=== PATIENT | male | born 1960 | race Caucasian/White ===

== ENCOUNTER 2017-06-14 14:16 | Inpatient (IN) | payer BC ==
[~2017-06-14] VITALS: Ht 167.6 cm; Wt 103.7 kg
[~2017-06-14 14:16] MED LIST: ALBUTEROL SULF8.5 GM IH; ANUSOL HC,ANUCO25 MG PR; ANUSOL-HC21 GM PR; PREDNISONE10 MG PO
[2017-06-14 15:04] LABS: HEMATOCRIT 30.2 % (38.0-50.0); MCH 15.6 PG (29.0-34.0); MCHC 26.8 G/DL (30.0-36.0); MCV 58.3 FL (86-99); MEAN PLAT.VOLUME 8.4 uM^3 (9.0-12.4); NRBC (%) 0.5 /100 WBC (0-0); PLATELET COUNT 651 K/uL (156-360); RBC DIS.WIDTH-CV 21.8 % (11.8-14.6); RBC DIS.WIDTH-SD 41.9 % (39-53); RED BLOOD COUNT 5.18 M/uL (4.00-5.50); WHITE BLOOD COUNT 15.3 K/uL (4.1-10.2)
[2017-06-14 15:10] LABS: CHLORIDE 99 mEq/L (99-109); POTASSIUM 4.4 mEq/L (3.7-5.4); SODIUM 133 mEq/L (136-147)
[2017-06-14 15:12] LABS: GLUCOSE 92 mg/dL (70-99)
[2017-06-14 15:13] LABS: ANION GAP 8 MEQ/L (2-14)
[2017-06-14 15:16] LABS: GFR ESTIMATE (CALCULATED) > 59 mL/min/
[2017-06-14 15:17] LABS: UREA NITROGEN (BUN) 10 mg/dL (9-23)
[2017-06-14] MEDS ORDERED: ASPIR 8181 M1 PO (15:20)
[2017-06-14] MEDS ORDERED: PRILOSEC20 MG PO (15:20)
[2017-06-14] MEDS ORDERED: DALIRESP500 MCG PO (15:20)
[2017-06-14] MEDS ORDERED: STIOLTO RESPIMAT4 GM IH (15:21)
[2017-06-14] MEDS ORDERED: ATORVASTATIN CA10 MG PO (15:21)
[2017-06-14] MEDS ORDERED: TRAMADOL HCL50 MG PO (15:22)
[2017-06-14] MEDS ORDERED: DELTASONE20 M1 PO (15:22)
[2017-06-14] MEDS ORDERED: VENTOLIN HFA18 GM PO (15:22)
[2017-06-14 15:28] LABS: ADD MIUA? NO; BILIRUBIN NEGATIVE; BLOOD NEGATIVE; COLOR COLORLESS ((YELLOW)); GLUCOSE (STRIP) NEGATIVE; KETONES NEGATIVE; LEUKOCYTES NEGATIVE; NITRITE NEGATIVE; PROTEIN (STRIP) NEGATIVE; SPECIFIC GRAVITY 1.003 (1.000-1.030); UROBILINOGEN 0.2 MG/DL (0.2-1.0)
[2017-06-14 16:01] LABS: TROP-I INTERPRETATION NEGATIVE; TROPONIN-I 0.01 ng/mL (0.0-0.30)
[2017-06-14 16:07] LABS: EOSINOPHIL (%) 0.1 % (0-5); HEMATOCRIT 30.8 % (38.0-50.0); IMMATURE GRANULOCYTE (%) 1.1 % (0.0-0.7); IMMATURE GRANULOCYTE COUNT 0.2 K/uL; INSTRUMENT ABS NEUTROPHIL CT 12.5 K/uL; LYMPHOCYTE COUNT 1.7 K/uL (1.0-2.8); MCH 15.3 PG (29.0-34.0); MCHC 26.3 G/DL (30.0-36.0); MCV 58.2 FL (86-99); MEAN PLAT.VOLUME 8.6 uM^3 (9.0-12.4); MONOCYTE (%) 3.1 % (3-12); MONOCYTE COUNT 0.5 K/uL (0-0.8); NEUTROPHIL COUNT 12.5 K/uL (1.8-6.4); NRBC (%) 0.7 /100 WBC (0-0); PLATELET COUNT 642 K/uL (156-360); RBC DIS.WIDTH-CV 22.1 % (11.8-14.6); RBC DIS.WIDTH-SD 41.7 % (39-53); RED BLOOD COUNT 5.29 M/uL (4.00-5.50); WHITE BLOOD COUNT 14.9 K/uL (4.1-10.2)
[2017-06-14 17:26] LABS: UCUL ADDED? NO
[2017-06-14 18:36] LABS: INTER. NORMALIZED RATIO 1.1; PROTHROMBIN TIME 12.2 SEC (10.2-12.9)
[2017-06-14 18:38] LABS: PTT 26.5 SEC (25-37)
[2017-06-14] MEDS ORDERED: LEVOFLOXACIN500 MG PO (18:42)
[2017-06-14 21:17] LABS: HEMATOCRIT 29.1 % (38.0-50.0); MCV 58.7 FL (86-99)
[2017-06-14 23:58] VITALS: BP 136/65
[2017-06-15] VITALS (11 sets, daily range): BP systolic 116–165; BP diastolic 63–78
[2017-06-15 07:00] LABS: BASOPHIL COUNT 0.1 K/uL (0-0.1); EOSINOPHIL (%) 1.4 % (0-5); EOSINOPHIL COUNT 0.2 K/uL (0-0.3); HEMATOCRIT 29.6 % (38.0-50.0); IMMATURE GRANULOCYTE COUNT 0.1 K/uL; INSTRUMENT ABS NEUTROPHIL CT 8.1 K/uL; LYMPHOCYTE COUNT 2.8 K/uL (1.0-2.8); MCH 15.6 PG (29.0-34.0); MCHC 26.4 G/DL (30.0-36.0); MCV 59.2 FL (86-99); MEAN PLAT.VOLUME 8.4 uM^3 (9.0-12.4); MONOCYTE (%) 9.2 % (3-12); MONOCYTE COUNT 1.1 K/uL (0-0.8); NEUTROPHIL (%) 65.2 % (45-76); NEUTROPHIL COUNT 8.1 K/uL (1.8-6.4); PLATELET COUNT 602 K/uL (156-360); RBC DIS.WIDTH-CV 21.8 % (11.8-14.6); RBC DIS.WIDTH-SD 42.9 % (39-53); WHITE BLOOD COUNT 12.4 K/uL (4.1-10.2)
[2017-06-15 07:04] LABS: ANION GAP 9 MEQ/L (2-14); CHLORIDE 101 MEQ/L (99-109); POTASSIUM 4.3 MEQ/L (3.7-5.4); SAMPLE HEMOLYSIS CHECK 0; SAMPLE ICTERIC CHECK 0; SAMPLE LIPEMIA CHECK 0; SODIUM 137 MEQ/L (136-147)
[2017-06-15 07:10] LABS: GFR ESTIMATE (CALCULATED) > 59 mL/min/; GLUCOSE 80 mg/dL (70-99); UREA NITROGEN (BUN) 10 mg/dL (9-23)
[2017-06-15 14:41] LABS: C DIFF TOXIN NEGATIVE (NEGATIVE)
[2017-06-15 14:53] LABS: PROBE CHECK PASS; SPECIMEN PROCESSING CONTROL PASS
[2017-06-16 07:14] LABS: BASOPHIL COUNT 0.1 K/uL (0-0.1); EOSINOPHIL (%) 1.3 % (0-5); EOSINOPHIL COUNT 0.2 K/uL (0-0.3); HEMATOCRIT 36.5 % (38.0-50.0); IMMATURE GRANULOCYTE (%) 0.7 % (0.0-0.7); IMMATURE GRANULOCYTE COUNT 0.1 K/uL; INSTRUMENT ABS NEUTROPHIL CT 9.8 K/uL; LYMPHOCYTE COUNT 3.5 K/uL (1.0-2.8); MCH 17.5 PG (29.0-34.0); MCHC 28.2 G/DL (30.0-36.0); MEAN PLAT.VOLUME 8.6 uM^3 (9.0-12.4); MONOCYTE (%) 8.7 % (3-12); MONOCYTE COUNT 1.3 K/uL (0-0.8); NEUTROPHIL (%) 65.4 % (45-76); NEUTROPHIL COUNT 9.8 K/uL (1.8-6.4); NRBC (%) 0.7 /100 WBC (0-0); PLATELET COUNT 618 K/uL (156-360); RBC DIS.WIDTH-CV 25.9 % (11.8-14.6); RBC DIS.WIDTH-SD 52.7 % (39-53); RED BLOOD COUNT 5.89 M/uL (4.00-5.50); WHITE BLOOD COUNT 14.9 K/uL (4.1-10.2)
[2017-06-16 08:28] VITALS: BP 128/68
== END 2017-06-16 09:18 | disposition home or self-care (01) | DRG 378 ==
LOC: EME 14:16 → EDOF 19:18 → 5EAST 19:18 → ENRESERV 19:31 → 5EAST 21:02
PROVIDERS: Family Medicine; Physician Assistant
PROC: 30233N1 Transfusion of Nonautologous Red Blood Cells into Peripheral Vein, Percutaneous Approach (ICD-10-PCS; principal; 2017-06-15)
DX: K92.1 Melena (principal); D62 Acute posthemorrhagic anemia; J44.0 Chronic obstructive pulmonary disease with (acute) lower respiratory infection; J20.9 Acute bronchitis, unspecified; D72.829 Elevated white blood cell count, unspecified; I10 Essential (primary) hypertension; E78.5 Hyperlipidemia, unspecified; K76.0 Fatty (change of) liver, not elsewhere classified; I65.21 Occlusion and stenosis of right carotid artery; E66.9 Obesity, unspecified; Z68.36 Body mass index [BMI] 36.0-36.9, adult; K21.9 Gastro-esophageal reflux disease without esophagitis; Z91.19 Patient's noncompliance with other medical treatment and regimen; Z87.891 Personal history of nicotine dependence; Z79.82 Long term (current) use of aspirin
CPT/HCPCS: 71020; 71260; 74177; 80048; 81003; 84484; 85014; 85018; 85025; 85027; 85610; 85730; 86850; 86900; 86901; 86920; 87493; 93005; 94640; 94640 76; 99202; 99281; 99285; C9113; J1940; J7030; J7512; P9016